=== PATIENT | male | born 1940 | race Caucasian/White ===

== ENCOUNTER 2017-06-05 14:53 | Outpatient (CLI) | payer OTHER ==
[2017-06-05 15:18] LABS: Calc. Creatinine Clearance 0 mL/min (70-130); Estimated GFR-MDRD Greater than 90
== END 2017-06-05 14:54 | disposition home or self-care (01) ==
LOC: MADLAB 14:53
PROVIDERS: ATTEND Family Medicine
DX: R10.11 Right upper quadrant pain (principal)
CPT/HCPCS: 36415; 82565

== ENCOUNTER 2017-06-06 08:59 | Outpatient (CLI) | payer OTHER ==
[2017-06-06] MEDS ORDERED: Iopamidol 370 76% 100 ML VIAL ONE (10:09)
--- NOTE | 2017-06-06 12:19 | CT ---
CT ABDOMEN AND PELVIS WITH ORAL AND IV CONTRAST HISTORY: Right upper quadrant abdominal pain. FINDINGS: There is a 9 mm low density lesion in the left lobe of the liver, likely a cyst. The spleen, pancre as, adrenal glands, and kidneys are normal. No calcified gallstones are seen. No free air, free fluid, or lymphadenopathy is seen in the abdomen or pelvis. There are vascular ca lcifications without evidence of aneurysmal dilatation of the abdominal aorta. 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 The small bowel loops are not abnormally dilated. There is fecal material in the colon. IMPRESSION: No acute process. POS: [facility]
== END 2017-06-06 09:00 | disposition home or self-care (01) ==
LOC: MADCT 08:59
PROVIDERS: ATTEND Family Medicine
DX: R10.11 Right upper quadrant pain (principal)
CPT/HCPCS: 74177

== ENCOUNTER 2021-01-07 14:57 | Outpatient (CLI) | payer MEDICARE ==
[2021-01-07 15:22] LABS: Bilirubin Negative (Negative); Blood, Urine Negative (Negative); Clarity Clear (Clear); Glucose, Urine (Dipstick) Negative (Negative); Ketone, Urine Negative (Negative); Leukocyte Negative (Negative); Nitrite Negative (Negative); Protein, Urine (Dipstick) Negative (Neg-Trace); Specific Gravity, Urine 1.025 (1.005-1.030); Urobilinogen 0.2 mg/dL (Less than 2)
[2021-01-07 15:29] LABS: Bacteria/HPF Rare-Few HPF (None Seen); Mucous/LPF 1+ LPF (<2+); RBC/HPF 0-3 HPF (0-3); Squamous Epithelial 0-3 HPF (0-3); WBC/HPF 0-3 HPF (0-3)
--- NOTE | 2021-01-07 15:42 | RAD ---
RIGHT RIBS 3 VIEWS: HISTORY: Fall with injury to ribs. FINDINGS: There are deformities which appear to represent old healed fractures involving the posterolateral rig ht 5th, 6th, and 7th ribs. There is an acute mildly displaced fracture involving the posterior right 8th rib. There is an acute fracture involving the lateral right 9th rib. There is a small right pleural effusion. No evidence of pneumothorax. IMPRESSION: 1. Multiple rib deformities which appear to represent old healed fractures as described above. 2. Evidence of acute fractures involving the posterior right 8th rib and lateral right 9th rib. 3. Right pleural effusion. POS: [facility]
== END 2021-01-07 14:58 | disposition home or self-care (01) ==
LOC: MADRAD 14:57
PROVIDERS: ATTEND Family Medicine
DX: R07.81 Pleurodynia (principal); R31.0 Gross hematuria; J90 Pleural effusion, not elsewhere classified; S22.41XA Multiple fractures of ribs, right side, initial encounter for closed fracture; Z87.81 Personal history of (healed) traumatic fracture
CPT/HCPCS: 81001; 87086

== ENCOUNTER 2021-02-04 12:15 | Outpatient (CLI) | payer MEDICARE | END 2021-02-04 12:16 | disposition home or self-care (01) | LOC: MADRAD 12:15 | PROVIDERS: ATTEND Family Medicine | DX: S22.41XS Multiple fractures of ribs, right side, sequela (principal); J90 Pleural effusion, not elsewhere classified ==

== ENCOUNTER 2021-03-08 14:57 | Outpatient (CLI) | payer MEDICARE | END 2021-03-08 14:58 | disposition home or self-care (01) | LOC: MADRAD 14:57 | PROVIDERS: ATTEND Family Medicine | DX: J90 Pleural effusion, not elsewhere classified (principal); S22.41XA Multiple fractures of ribs, right side, initial encounter for closed fracture | CPT/HCPCS: 71046 ==

== ENCOUNTER 2022-04-28 15:03 | Emergency (ER) | payer MEDICARE ==
[2022-04-28 16:11] LABS: Bilirubin Negative (Negative); Blood, Urine Trace (Negative); Clarity Clear (Clear); Glucose, Urine (Dipstick) Negative (Negative); Ketone, Urine Trace mg/dL (Negative); Leukocyte Negative (Negative); Nitrite Negative (Negative); Protein, Urine (Dipstick) Trace mg/dL (Neg-Trace); Specific Gravity, Urine 1.015 (1.005-1.030); pH, Urine 5.5 (5.0-9.0)
[2022-04-28 16:17] LABS: ALT (SGPT) Less than 7 U/L (8-55); AST (SGOT) 13 U/L (5-34); Albumin 3.5 g/dL (3.4-4.8); Alkaline Phosphatase 64 U/L (40-110); Anion Gap 16 mmol/L (10-20); BUN (Urea Nitrogen) 13 mg/dL (8.4-25.7); Bilirubin, Total 1.7 mg/dL (0.2-1.2); Calc. Creatinine Clearance 0 mL/min (70-130); Calcium 9.3 mg/dL (7.8-10.44); Carbon Dioxide 26 mmol/L (23-31); Chloride 100 mmol/L (98-107); Globulin 3.5 g/dL (2.4-3.5); Glucose 119 mg/dL (83-110); Potassium 3.6 mmol/L (3.5-5.1); Sodium 138 mmol/L (136-145)
[2022-04-28 16:17] LABS: Bacteria/HPF Rare-Few HPF (None Seen); Mucous/LPF 2+ LPF (<2+); RBC/HPF 0-3 HPF (0-3); Squamous Epithelial 0-3 HPF (0-3); WBC/HPF None Seen HPF (0-3)
[2022-04-28 16:22] LABS: Band 6 % (5-11); Hemoglobin 13.5 g/dL (14.0-18.0); Lymphocytes 4 % (21-51); MDiff Complete? YES; Mean Corpuscular HGB CONC 33.4 g/dL (32.0-36.0); Mean Corpuscular Hemoglobin 32.1 pg (27.0-31.0); Mean Corpuscular Volume 95.9 fL (78.0-98.0); Mean Platelet Volume 7.7 fL (7.4-10.4); Monocytes 11 % (0-10); Neutrophil 74 % (42-75); Platelet Count 208 thou/uL (130-400); Platelet Morphology Comment Appears Adequate; RBC Distribution Width 11.3 % (11.5-14.5); RBC Morphology Normal; Reactive Lymphocytes 5 % (0-10); Red Blood Cell (RBC) Count 4.22 mill/uL (4.70-6.10); White Blood Cell (WBC) Count 10.8 thou/uL (4.8-10.8)
[2022-04-29 12:07] LABS: SARS-CoV-2 PCR by NAA Not Detected (NotDetected)
== END 2022-04-28 17:35 | disposition home or self-care (01) ==
LOC: MADERS 15:03
DX: H10.9 Unspecified conjunctivitis (principal); R05.2 Subacute cough; R19.7 Diarrhea, unspecified; Z79.899 Other long term (current) drug therapy
CPT/HCPCS: 36415; 71046; 80053; 81003; 81015; 83605; 85025; 87040; 87804; U0003; U0005

== ENCOUNTER 2022-12-12 14:28 | Emergency (ER) | payer OTHER, MEDICARE ==
[2022-12-12] MEDS ORDERED: Ibuprofen 800 MG TAB ONE (15:18)
== END 2022-12-12 16:06 | disposition home or self-care (01) ==
LOC: MADERS 14:28
DX: S00.03XA Contusion of scalp, initial encounter (principal); S39.012A Strain of muscle, fascia and tendon of lower back, initial encounter; S50.811A Abrasion of right forearm, initial encounter; W18.30XA Fall on same level, unspecified, initial encounter
CPT/HCPCS: 70450; 72125; 72131